=== PATIENT | female | born 2000 | race Caucasian/White ===

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

== ENCOUNTER → 2022-06-08 13:43 | Outpatient (BNVA) | payer MEDICAID, SELFPAY ==
[2020-02-11 11:53] VITALS: BP 118/79; BMI 27.2
== END ==
PROVIDERS: Visit Provider Family Medicine
DX: F25.1 Schizoaffective disorder, depressive type (principal); F43.12 Post-traumatic stress disorder, chronic; N75.0 Cyst of Bartholin's gland; Z76.89 Persons encountering health services in other specified circumstances
CPT/HCPCS: 80053; 80061; 83036; 84443; 85025